=== PATIENT | male | born 1990 | race Caucasian/White ===

== ENCOUNTER 2019-05-14 23:54 | Emergency (ER) | payer OTHER, SELFPAY ==
[2019-05-15 01:09] VITALS: BP 109/57; PULSE 47; RESP 12; TEMP 36.5; O2SAT 100; BMI 27.2
--- NOTE | 2019-05-15 01:12 | DI.RAD.S_ITS ---
PROCEDURE: XR FINGER LT MIN 2V INDICATIONS: injury, smash 2nd digit in tool box TECHNIQUE: AP hand, 2 views of the 2nd finger(s) acquired. COMPARISON: None. FINDINGS: Bones: There is a comminuted, mildly to moderately displaced fracture of the proximal phalanx of the 2nd finger, with intra-articular involvement. No additional fractures are detected. No suspicious lytic or blastic lesions are seen. Soft tissues: Associated soft tissue swelling is seen. IMPRESSION: There is an intra-articular fracture of the proximal phalanx of the 2nd finger, with comminution and mild to moderate displacement. Dictated by: Krishna Patel M.D. on 05/15/2019 at 8:02 Approved by: Krishna Patel M.D. on 05/15/2019 at 8:03
--- NOTE | 2019-05-15 01:44 | ED.UPPEXIN ---
HPI - Extremity Injury (Upper) General Chief Complaint: Extremity Injury, Upper Stated Complaint: left index finger bruised Swollen can't move it Time Seen by Provider: 05/15/19 01:27 Source: patient Mode of arrival: ambulatory Limitations: no limitations History of Present Illness HPI narrative: This is a 28-year-old male comes the emergency department with complaint of injury to his left hand. Patient states he dropped toolbox lid on his hand. He states the lid probably weighs between 50 and 100 lb. He states it happened earlier in the afternoon. He states that he had increasing swelling in his finger over time. I states he was able flex and straight at some but now he can't secondary to the swelling. Denies any numbness or tingling. He states uncomfortable but not terribly so. Patient denies any other injuries. He denies any other medical issues. He has had some orthopedic surgeries on his other hand. He is right-hand dominant. Related Data Previous Rx's Medication Instructions Recorded silver sulfadiazine 1 % topical 1 applictn TOP DAILY #25 gram 09/25/18 cream acetaminophen-codeine 1 tab PO Q6H PRN #14 tab 05/15/19 [Tylenol-Codeine #3] Allergies Allergy/AdvReac Type Severity Reaction Status Date / Time acetaminophen [From VICODIN] Allergy Unknown Verified 05/15/19 01:09 hydrocodone [From VICODIN] Allergy Unknown Verified 05/15/19 01:09 Review of Systems Constitutional Constitutional: Denies weakness Musculoskeletal Musculoskeletal: Reports system reviewed and no additional complaints, except as docu, Reports as per HPI, Reports deformity, Reports joint swelling, Reports limited range of motion, Denies muscle weakness, Denies numbness and Denies tingling Integumentary/Breasts Skin/Breast: Reports unusual bruising Neurologic Neurologic: Denies numbness, Denies sensory deficit, Denies tingling, Denies paresthesias and Denies weakness [facility] Social History Smoking Status: Current some day smoker substance use type: marijuana (2 times/ month recreationally ) Social History Smoking Status: Current some day smoker substance use type: marijuana (2 times/ month recreationally ) Exam Narrative Exam Narrative: GENERAL: Alert and oriented x three, HEENT: Head normocephalic, atraumatic, EOMI, pupils reactive, face symmetric, moist mucous membranes NECK: Supple, full range of motion EXTREMITIES: Normal range of motion except for the 2nd finger on the left hand, patient has significant swelling and ecchymosis of the 2nd finger on the left hand spreading into the dorsum of his left hand. Patient is able to slightly flex and bend it but not completely. He does have a little bit of a deformity with angulation towards the ulnar side, patient has normal sensation throughout the finger, cap refills less than 2 seconds and he does not have any coolness to the finger, Neurovascularly intact. No other trauma noted. NEUROLOGICAL: Cranial nerves II through XII grossly intact. Moving all extremities SKIN: Warm, dry, intact. Initial Vital Signs Initial Vital Signs: Vital Signs Temperature 97.7 F 05/15/19 01:09 Pulse Rate 47 L 05/15/19 01:09 Respiratory Rate 12 05/15/19 01:09 Blood Pressure 109/57 L 05/15/19 01:09 Pulse Oximetry 100 05/15/19 01:09 Course Orders Ordered: ED Orders 05/15/19 01:12 XR finger LT min 2V Stat Discontinued Medications Acetaminophen/Codeine Phosphate (Tylenol #3) 1 tab PO NOW ONE Stop: 05/15/19 01:56 Last Admin: 05/15/19 02:17 Dose: 1 tab Documented by: ELISEO Vital Signs Vital signs: Vital Signs - 8 hr 05/15/19 01:09 05/15/19 02:57 Temperature 97.7 F Pulse Rate 47 L 44 L Respiratory Rate 12 18 Blood Pressure 109/57 L Pulse Oximetry 100 98 MDM - Extremity Injury (Upper) Imaging Data hand xray left: My impression: 2nd finger proximal phalanx has comminuted fracture that is intraarticular. No fracture of carpal bone appreciated. No other fracture noted. no FB MDM Narrative Medical decision making narrative: Spoke with Dr. London, recommends finger splint and follow up with orthopedic surgery. Patient NVI after splint placed by nursing. T#3 give in ED along with rx. 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 Discharge Plan Departure Patient Disposition: Home Clinical Impression: Fracture of finger Qualifiers: Encounter type: initial encounter Finger: index finger Fracture type: closed Phalanx: proximal Fracture alignment: displaced Laterality: left Qualified Code(s): S62.611A - Displaced fracture of proximal phalanx of left index finger, initial encounter for closed fracture Discharge Date/Time: 05/15/19 02:57 Instructions: DI for Finger Fracture Activity Restrictions/Additional Instructions: Call Friday to set up follow-up with Orthopedic surgery. Call the number included below. May take pain medication as prescribed, take 1 tablet every 6-8 hours as needed. Splint Care: Keep splint clean and dry. Elevated affected body part to decrease swelling. OK to use ice pack on the affected body part. Use for 15-20 minutes each time, for 5-6x per day. If you develop worsening pain, numbness, tingling, discoloration of the affected body part, loosen the splint by loosening the NI wrap, and either see your doctor for an urgent re-assessment, or return to the Emergency Department. Return to the Emergency Department for any new or worsening symptoms. Prescriptions: New acetaminophen-codeine [Tylenol-Codeine #3] 300-30 mg tablet 1 tab PO Q6H PRN (Reason: pain) Qty: 14 RF: 0 No Action silver sulfadiazine [Silvadene] 1 % cream 1 applictn TOP DAILY Qty: 25 RF: 1 Referrals: Mary Ellen Kulkarni MD [Primary Care Provider] - Huber London MD [Physician] - Stand Alone Forms: Work Release Note
[2019-05-15] MEDS: CODEINE/ACETAMINOPHEN 30/300 TABLET 1 TAB PO (02:17)
[2019-05-15 02:57] VITALS: PULSE 44; RESP 18; O2SAT 98
== END 2019-05-15 02:57 | disposition home or self-care (01) ==
PROVIDERS: Emergency Provider Emergency Medicine; Family Provider Family Medicine; PCP Family Medicine
DX: S62.611A Displaced fracture of proximal phalanx of left index finger, initial encounter for closed fracture (principal)
CPT/HCPCS: 29130; 73140; 99282; 99283

== ENCOUNTER → 2019-07-21 15:58 | Outpatient (CLI) | payer OTHER, SELFPAY ==
[2019-07-21 16:23] LABS: Influenza A and B by PCR Rapid Negative (Negative)
== END ==
PROVIDERS: Family Provider Family Medicine; PCP Family Medicine; Visit Provider Physician Assistant
DX: R68.89 Other general symptoms and signs (principal)
CPT/HCPCS: 87502

== ENCOUNTER → 2019-07-21 16:13 | Outpatient (CLI) | payer OTHER, SELFPAY ==
[2019-07-21 17:00] LABS: Add Manual Diff / Slide Review NO; Basophils Absolute Auto 0 /uL (0-100); Basophils Percent Auto 0.4 % (0-2); Eosinophils Absolute Auto 200 /uL (0-450); Eosinophils Percent Auto 2.7 % (2-4); Hemoglobin 14.8 g/dL (13.5-17.5); Lymphocytes Absolute Auto 1700 /uL (1100-4500); Lymphocytes Percent Auto 24.5 % (25-40); Mean Corpuscular HGB Conc 33.5 % (30-36); Mean Corpuscular Hemoglobin 29.4 PG (26-34); Mean Corpuscular Volume 87.8 fL (80-100); Monocytes Absolute Auto 1100 /uL (0-900); Neutrophils Absolute Auto 4000 /uL (1500-7000); Neutrophils Percent Auto 56.4 % (50-75); Platelet Count 215 X10^3/uL (150-400); Red Blood Cell Count 5.01 X10^6/uL (4.5-5.9); Red Cell Distribution Width 12.9 % (11.6-14.8); White Blood Cell Count 7.1 X10^3/uL (4.5-11.0)
[2019-07-21 17:07] LABS: Alanine Aminotransferase 20 IU/L (<50); Albumin 4.2 g/dL (3.5-5.0); Albumin Globulin Ratio 1.8 (1.0-2.8); Alkaline Phosphatase 52 U/L (38-126); Amylase 96 U/L (30-110); Aspartate Aminotransferase 25 IU/L (17-59); BUN Creatinine Ratio 15.6 (6-22); Bilirubin Total 0.4 mg/dL (0.2-1.3); Blood Urea Nitrogen 14 mg/dL (9-20); Calcium 8.9 mg/dL (8.4-10.2); Carbon Dioxide 29 mmol/L (22-32); Chloride 100 mmol/L (98-107); Estimated Glomerular Filt Rate > 60.0 mL/min (>60); Globulin 2.4 g/dL (1.7-4.1); Glucose 94 mg/dL (70-100); HEMOLYSIS < 15 (0-50); Lipase 174 U/L (23-300); Potassium 3.9 mmol/L (3.4-5.1); Sodium 139 mmol/L (137-145); Total Protein 6.6 g/dL (6.3-8.2)
[2019-07-21 17:51] LABS: Hepatitis B Surface Antigen NEGATIVE s/c (NEGATIVE)
[2019-07-21 17:57] LABS: Hep C Virus Ab w/Reflex Quant NEGATIVE s/c (NEGATIVE)
[2019-07-24 17:01] LABS: Hepatitis A Ab Total Nonreactive (Nonreactive)
== END ==
PROVIDERS: Visit Provider Physician Assistant
DX: R11.2 Nausea with vomiting, unspecified (principal); R19.7 Diarrhea, unspecified; R68.89 Other general symptoms and signs
CPT/HCPCS: 36415; 80053; 82150; 83690; 85025; 86803; 87340; 87502

== ENCOUNTER → 2019-07-24 10:02 | Outpatient (CLI) | payer OTHER, SELFPAY ==
[2019-07-24 12:22] LABS: Clostridium Difficile Tox PCR Negative for C. diff
== END ==
PROVIDERS: Visit Provider Physician Assistant
DX: R11.2 Nausea with vomiting, unspecified (principal); R19.7 Diarrhea, unspecified
CPT/HCPCS: 87045; 87493; 87899

== ENCOUNTER 2019-10-21 19:12 | Emergency (ER) | payer OTHER, SELFPAY ==
[2019-10-21 19:25] VITALS: BP 108/64; PULSE 56; RESP 16; TEMP 36.6; O2SAT 100; BMI 26.5
--- NOTE | 2019-10-21 19:28 | DI.RAD.S_ITS ---
PROCEDURE: XR TOE LT MIN 2V INDICATIONS: left great toe, pain for 4 days, denies injuries TECHNIQUE: 3 views of the 1st toe(s) acquired. COMPARISON: None. FINDINGS: Bones: No fractures or dislocations. No suspicious bony lesions. Incidental note is made of a bipartite medial sesamoid bone. Soft tissues: Mild soft tissue swelling is seen of the great toe. IMPRESSION: Soft tissue swelling, without an acute bony abnormality of the great toe. Dictated by: Krishna Patel M.D. on 10/21/2019 at 19:45 Approved by: Krishna Patel M.D. on 10/21/2019 at 19:45
--- NOTE | 2019-10-21 20:43 | ED_ITS ---
HPI - Extremity Injury (Lower) General Chief Complaint: Extremity Injury, Lower Stated Complaint: Left foot injury Time Seen by Provider: 10/21/19 19:54 Source: patient Mode of arrival: Ambulatory Limitations: no limitations History of Present Illness HPI Narrative: 29-year-old male here for evaluation of left toe pain. Patient states has been going on for the past several weeks/months. No specific trauma. He does wear boots at work. He does not think that the boots are rubbing on his toe. They are not new issues. He states that occasionally the toe becomes swollen and red and other times it does not. It does hurt for him to walk. Is worsening over the past 24 hours which is what brought him to the emergency department. Has not tried anything for symptoms prior to arrival Related Data Previous Rx's Medication Instructions Recorded silver sulfadiazine 1 % topical 1 applictn TOP DAILY #25 gram 09/25/18 cream acetaminophen-codeine 1 tab PO Q6H PRN #14 tab 05/15/19 [Tylenol-Codeine #3] ondansetron 4 mg disintegrating 4 mg PO BID PRN #14 tab 07/21/19 tablet Allergies Allergy/AdvReac Type Severity Reaction Status Date / Time No Known Drug Allergies Allergy Verified 10/21/19 19:25 Review of Systems Constitutional Constitutional: Denies fever(s) Cardiovascular Cardiovascular: Denies chest pain and Denies dyspnea Respiratory Respiratory: Denies dyspnea Gastrointestinal Gastrointestinal: Denies abdominal pain Musculoskeletal Musculoskeletal: Denies tingling Comments: Left big toe pain Integumentary/Breasts Skin/Breast: Denies lesions and Denies rash Neurologic Neurologic: Denies tingling Hematologic/Lymphatic Hematologic/Lymphatic: Denies easy bleeding and Denies easy bruising Patient History Medical History Patient denies medical problems (Acute) Social History Smoking Status: Current some day smoker substance use type: marijuana (2 times/ month recreationally ) Smoking Status: Current some day smoker alcohol intake frequency: holidays/special occasions only Substance Use Type: does not use Exam Initial Vital Signs Initial Vital Signs: Vital Signs Temperature 97.8 F 10/21/19 19:25 Pulse Rate 56 L 10/21/19 19:25 Respiratory Rate 16 10/21/19 19:25 Blood Pressure 108/64 10/21/19 19:25 Pulse Oximetry 100 10/21/19 19:25 Cardio Pulses: dorsalis pedis present on the left Skin Lesions: no lesions Rashes: no rashes Neuro Sensory Exam: no sensory deficits noted Extrem Other: Patient points to the MTP joint of his left great toe is the location of his pain. He states it is more on the bottom and outside of his foot and not so much in the top. No IP joint tenderness. Does have some tenderness with moveme nt of the MTP joint. There is no redness. No warmth. Psych Appearance: grossly normal and well kempt Course Orders Ordered: ED Orders 10/21/19 19:28 XR toe LT min 2V Stat Vital Signs Vital signs: Vital Signs - 8 hr 10/21/19 19:25 Temperature 97.8 F Pulse Rate 56 L Respiratory Rate 16 Blood Pressure 108/64 Pulse Oximetry 100 [facility] - Extremity Injury (Lower) Imaging Data Extremity x-ray #1: Radiologist's Impression: [address] [address] XRay Report Signed Patient: Anthony Rowe [facility]#: [id number] : 1990Acct:[id number] Age/Sex: MDate of Service: 10/21/19 Loc: ED Accession Number: [id number] Procedure: XR toe LT min 2V Ordering Provider: Harleen Liu D.O. PROCEDURE: XR TOE LT MIN 2V INDICATIONS: left great toe, pain for 4 days, denies injuries TECHNIQUE: 3 views of the 1st toe(s) acquired. COMPARISON: None. FINDINGS: Bones: No fractures or dislocations. No suspicious bony lesions. Incidental note is made of a bipartite medial sesamoid bone. Soft tissues: Mild soft tissue swelling is seen of the great toe. IMPRESSION: Soft tissue swelling, without an acute bony abnormality of the great toe. Dictated by: Krishna Patel M.D. on 10/21/2019 at 19:45 Approved by: Krishna Patel M.D. on 10/21/2019 at 19:45 [facility] Narrative Medical decision making narrative: No fractures on the x-ray. His relatively benign exam today. Low suspicion for gout. Low suspicion for infection. Patient was concerned about of bunion however his exam today is not consistent with gout. No fevers. I do suspect that this is a tendon/ligament issue. Unfortunately his job limits his ability to wear hard sole shoe. He was given 1 for his comfort. We discussed other potential symptom treatment options. He was given return precautions and follow-up instructions. He was also given phone number for the health natural resource officer help him establish primary doctor in the area. He expressed understanding and agreement this plan. Discharge Plan Departure Patient Disposition: Home Clinical Impression: Pain in toe of left foot Discharge Date/Time: 10/21/19 21:15 Activity Restrictions/Additional Instructions: Recommend that tomorrow you contact the health natural resource officer here at the hospital at [phone] to help you establish a primary provider. If your toe pain does not improve you can try and contact the respite provider at the [facility] at [phone]. Also recommend that you take anti- inflammatories such as Motrin or Naprosyn. Wear the hard sole shoe as much as possible like we discussed. Return to the emergency department for any new or worsening symptoms Prescriptions: No Action silver sulfadiazine [Silvadene] 1 % cream 1 applictn TOP DAILY Qty: 25 RF: 1 ondansetron 4 mg tablet,disintegrating 4 mg PO BID PRN (Reason: nausea and vomiting) Qty: 14 RF: 0 acetaminophen-codeine [Tylenol-Codeine #3] 300-30 mg tablet 1 tab PO Q6H PRN (Reason: pain) Qty: 14 RF: 0
== END 2019-10-21 21:15 | disposition home or self-care (01) ==
PROVIDERS: Emergency Provider Emergency Medicine
DX: M79.675 Pain in left toe(s) (principal); Y99.0 Civilian activity done for income or pay
CPT/HCPCS: 73660; 99281; 99283